=== PATIENT | female | born 1990 | race Caucasian/White ===

== ENCOUNTER 2017-07-17 03:57 | Emergency (ER) | payer SELFPAY, OTHER ==
[2017-07-17] MEDS: methylPREDNISolone SOD SUCC PF 125 MG/2 ML VIAL. IM (04:54)
== END 2017-07-17 05:08 | disposition home or self-care (01) ==
LOC: ER 03:57
DX: L50.9 Urticaria, unspecified (principal); Z90.49 Acquired absence of other specified parts of digestive tract; Z88.5 Allergy status to narcotic agent
CPT/HCPCS: 96372; 99283; J2930

== ENCOUNTER → 2020-04-26 | Outpatient (CLI) | payer MEDICAID ==
[2017-07-17 04:26] VITALS: BP 137/79
[~2020-04-26] MED LIST: HYDR25TA PO; NITR100C62 PO; ONDA4TAB10 SL; ONDA4TAB12 PO; PRED50TA PO
--- NOTE | 2020-04-26 13:43 | KCIC ---
EXAM: XR HAND_LEFT 3 VIEWS 04/26/2020 12:39 PM CLINICAL INDICATION: Left hand pain and swelling, tenderness to third digit and third MCP COMPARISON: None TECHNIQUE: 3 views of the left hand FINDINGS: No acute fracture or malalignment. Alignment is normal. Joint spaces are maintained. Bone mineralization is normal. No productive changes or erosions. No soft tissue abnormality. IMPRESSION: Normal radiograph of the left hand. Electronically signed by: Valerie Ann MD (04/26/2020 1:41 PM) [id number]
== END ==
LOC: KCIC 12:36
PROVIDERS: ATTEND Nurse Practitioner Family
DX: M79.642 Pain in left hand (principal)
CPT/HCPCS: 73130